=== PATIENT | male | born 1955 | race Caucasian/White ===

== ENCOUNTER 2016-05-07 11:39 | Inpatient (IN) | payer BC ==
[~2016-05-07] VITALS: Ht 175.3 cm; Wt 105.9 kg
[~2016-05-07 11:39] MED LIST: ANORO ELLIPTA1 EACH IH; ASCORBIC ACID500 M1 PO; Ascorbic Acid PO; CEFTIN500 MG PO; DELTASONE20 M1 PO; DUONEB 2.5-0.5 M3 ML AEROSOL; LEVAQUIN750 MG PO; LISINOPRIL10 MG PO; LORTAB 7.5/51 TABLET PO; OFEV100 MG PO; OFEV150 MG PO; ONDANSETRON HCL8 MG PO; PREDNISONE10 MG PO; PROBIOTIC1 EAC1 PO; XANAX0.5 MG PO
[2016-05-07 11:59] LABS: HEMATOCRIT 39.7 % (38.0-50.0); MCH 32.9 PG (29.0-34.0); MCHC 34.3 G/DL (30.0-36.0); MCV 95.9 FL (86-99); MEAN PLAT.VOLUME 9.8 uM^3 (9.0-12.4); PLATELET COUNT 126 K/uL (156-360); RBC DIS.WIDTH-CV 16.3 % (11.8-14.6); RED BLOOD COUNT 4.14 M/uL (4.00-5.50)
[2016-05-07 12:01] LABS: WHITE BLOOD COUNT 3.5 K/uL (4.1-10.2)
[2016-05-07 12:04] LABS: EOSINOPHIL (%) 0.6 % (0-5); IMMATURE GRANULOCYTE (%) 1.7 % (0.0-0.7); IMMATURE GRANULOCYTE COUNT 0.6 K/uL; LYMPHOCYTE COUNT 0.7 K/uL (1.0-2.8); MONOCYTE COUNT 0.1 K/uL (0-0.8); NEUTROPHIL COUNT 2.7 K/uL (1.8-6.4)
[2016-05-07 12:14] LABS: CHLORIDE 106 mEq/L (99-109); POTASSIUM 5.3 mEq/L (3.7-5.4); SODIUM 139 mEq/L (136-147)
[2016-05-07 12:15] LABS: GLUCOSE 86 mg/dL (70-99)
[2016-05-07 12:17] LABS: ANION GAP 16 MEQ/L (2-14)
[2016-05-07 12:19] LABS: GFR ESTIMATE (CALCULATED) > 59 mL/min/
[2016-05-07 12:20] LABS: UREA NITROGEN (BUN) 13 mg/dL (9-23)
[2016-05-07 12:28] LABS: BASE EXCESS -1.7 mEq/L (-3 to +3); BICARBONATE 21.7 mEq/L (22-26); CARBOXY HGB 1.9 % (0-5); METHEMOGLOBIN 1.8 % (0-1.5); PCO2 32 mm Hg (35-45); PO2 178 mm Hg (80-100); pH 7.44 (7.35-7.45)
[2016-05-07 12:29] LABS: COMMENTS - BLOOD GASES A+C+; DEVICE NRBM; FI02 100 %; O2 FLOW 15 L/MIN; SITE LR; TOTAL RESP RATE 26 resp/min
[2016-05-07] MEDS ORDERED: DECADRON4 MG PO (13:23)
[2016-05-07 14:54] LABS: HEMATOLOGY COMMENT 1 SMEAR COMPATIBLE; PLAT.SUFFICIENCY DECREASED; USER ID NPD
[2016-05-07 14:56] LABS: ADD MIUA? NO; BILIRUBIN NEGATIVE; BLOOD NEGATIVE; COLOR YELLOW ((YELLOW)); GLUCOSE (STRIP) NEGATIVE; KETONES NEGATIVE; LEUKOCYTES NEGATIVE; NITRITE NEGATIVE; PROTEIN (STRIP) NEGATIVE; SPECIFIC GRAVITY 1.038 (1.000-1.030); UCUL ADDED? NO; UROBILINOGEN 0.2 MG/DL (0.2-1.0)
[2016-05-07 15:20] LABS: INFLUENZA A VIRAL ANTIGEN NEGATIVE; INFLUENZA B VIRAL ANTIGEN NEGATIVE
[2016-05-07 18:45] VITALS: BP 132/77
[2016-05-07 21:19] VITALS: BP 123/76
[2016-05-08 01:14] VITALS: BP 157/89
[2016-05-08 04:24] VITALS: BP 156/91
[2016-05-08 07:30] LABS: EOSINOPHIL (%) 0 % (0-5); HEMATOCRIT 30.3 % (38.0-50.0); IMMATURE GRANULOCYTE (%) 0.5 % (0.0-0.7); LYMPHOCYTE COUNT 0.2 K/uL (1.0-2.8); MCH 32.3 PG (29.0-34.0); MEAN PLAT.VOLUME 10.9 uM^3 (9.0-12.4); MONOCYTE (%) 2.6 % (3-12); MONOCYTE COUNT 0.1 K/uL (0-0.8); NEUTROPHIL (%) 92.5 % (45-76); PLATELET COUNT 105 K/uL (156-360); RBC DIS.WIDTH-CV 16.3 % (11.8-14.6); RBC DIS.WIDTH-SD 56.4 % (39-53); WHITE BLOOD COUNT 4.3 K/uL (4.1-10.2)
[2016-05-08 07:40] LABS: RED BLOOD COUNT 3.19 M/uL (4.00-5.50)
[2016-05-08 07:49] LABS: ALKALINE PHOSPHATASE 30 IU/L (3-129); ANION GAP 9 MEQ/L (2-14); CHLORIDE 107 MEQ/L (99-109); GFR ESTIMATE (CALCULATED) > 59 mL/min/; POTASSIUM 4.3 MEQ/L (3.7-5.4); SAMPLE HEMOLYSIS CHECK 0; SAMPLE ICTERIC CHECK 0; SAMPLE LIPEMIA CHECK 0; SODIUM 136 MEQ/L (136-147); TOTAL BILIRUBIN 0.6 MG/DL (0.0-1.0); UREA NITROGEN (BUN) 11 mg/dL (9-23)
[2016-05-08 07:57] LABS: GLUCOSE 153 mg/dL (70-99)
[2016-05-08 08:51] VITALS: BP 121/77
[2016-05-08 12:08] VITALS: BP 125/78
[2016-05-08 15:48] VITALS: BP 109/66
[2016-05-08 19:49] VITALS: BP 105/64
[2016-05-09 04:22] VITALS: BP 127/83
[2016-05-09 07:40] VITALS: BP 121/71
[2016-05-09] MEDS ORDERED: PREDNISONE10 MG PO (10:36)
[2016-05-09] MEDS ORDERED: ADVAIR HFA120 INHALA IH (10:36)
[2016-05-09] MEDS ORDERED: CEFDINIR300 MG PO (10:36)
[2016-05-09 11:24] VITALS: BP 131/67
== END 2016-05-09 12:10 | disposition home or self-care (01) | DRG 189 ==
LOC: EME 11:39 → EDOF 14:15 → 4SOUTH 14:15 → EDOF 18:54 → 4SOUTH 05-08 11:05
PROVIDERS: Emergency Medicine; Hospitalist
DX: J96.21 Acute and chronic respiratory failure with hypoxia (principal); J84.112 Idiopathic pulmonary fibrosis; Z99.81 Dependence on supplemental oxygen; J20.9 Acute bronchitis, unspecified; I25.10 Atherosclerotic heart disease of native coronary artery without angina pectoris; I10 Essential (primary) hypertension; G47.30 Sleep apnea, unspecified; D64.9 Anemia, unspecified; Z92.3 Personal history of irradiation; Z87.891 Personal history of nicotine dependence; Z85.118 Personal history of other malignant neoplasm of bronchus and lung
CPT/HCPCS: 36415; 36600; 71010; 71275; 80048; 80053; 81003; 82803; 83605; 85025; 87040; 87502; 93005; 94640; 94640 76; 94799; 99202; 99281; 99285; J0456; J0696; J2543; J2930; J3370; J7030; J7050

== ENCOUNTER 2016-08-26 14:52 | Inpatient (IN) | payer BC ==
[~2016-08-26] VITALS: Ht 175.3 cm; Wt 103.8 kg
[~2016-08-26 14:52] MED LIST changes: +ADVAIR HFA120 INHALA IH; +ATROVENT 00.5 MG/2.5 IH; +CEFDINIR300 MG PO; +DECADRON4 MG PO
[2016-08-26 15:21] LABS: BASOPHIL COUNT 0.1 K/uL (0-0.1); EOSINOPHIL (%) 3.5 % (0-5); EOSINOPHIL COUNT 0.3 K/uL (0-0.3); HEMATOCRIT 47.2 % (38.0-50.0); IMMATURE GRANULOCYTE (%) 0.2 % (0.0-0.7); INSTRUMENT ABS NEUTROPHIL CT 5.8 K/uL; MCH 29.2 PG (29.0-34.0); MCHC 32.8 G/DL (30.0-36.0); MCV 89.1 FL (86-99); MEAN PLAT.VOLUME 10.7 uM^3 (9.0-12.4); MONOCYTE (%) 12.6 % (3-12); NEUTROPHIL (%) 70.5 % (45-76); NEUTROPHIL COUNT 5.8 K/uL (1.8-6.4); PLATELET COUNT 191 K/uL (156-360); RBC DIS.WIDTH-CV 14.6 % (11.8-14.6); RBC DIS.WIDTH-SD 47.6 % (39-53); WHITE BLOOD COUNT 8.2 K/uL (4.1-10.2)
[2016-08-26 15:31] LABS: CHLORIDE 104 mEq/L (99-109); PROTHROMBIN TIME 10.4 (9.2-11.2); PTT 32.7 (25-32); SODIUM 138 mEq/L (136-147)
[2016-08-26 15:31] LABS: BASE EXCESS 1.4 mEq/L (-3 to +3); CARBOXY HGB 2.4 % (0-5)
[2016-08-26 15:32] LABS: MAGNESIUM 1.9 mg/dL (1.3-2.7)
[2016-08-26 15:33] LABS: GLUCOSE 121 mg/dL (70-99)
[2016-08-26 15:34] LABS: ANION GAP 13 MEQ/L (2-14)
[2016-08-26 15:35] LABS: BICARBONATE 26.6 mEq/L (22-26); COMMENTS - BLOOD GASES A+C+; DEVICE NRB; FI02 100 %; O2 FLOW 15 L/MIN; PCO2 43 mm Hg (35-45); PO2 46 mm Hg (80-100); SITE RR
[2016-08-26 15:37] LABS: GFR ESTIMATE (CALCULATED) > 59 mL/min/
[2016-08-26 15:38] LABS: UREA NITROGEN (BUN) 10 mg/dL (9-23)
[2016-08-26 15:47] LABS: TROP-I INTERPRETATION NEGATIVE; TROPONIN-I < 0.01 ng/mL (0.0-0.30)
[2016-08-26 17:17] LABS: BASE EXCESS -0.3 mEq/L (-3 to +3); BICARBONATE 24.1 mEq/L (22-26); CARBOXY HGB 2.3 % (0-5); METHEMOGLOBIN 1.3 % (0-1.5); pH 7.41 (7.35-7.45)
[2016-08-26 17:18] LABS: PCO2 38 mm Hg (35-45); PO2 133 mm Hg (80-100)
[2016-08-26] MEDS ORDERED: ESBRIET267 MG PO (18:22)
[2016-08-26 22:45] LABS: ADD MIUA? NO; BILIRUBIN NEGATIVE; BLOOD NEGATIVE; COLOR YELLOW ((YELLOW)); GLUCOSE (STRIP) NEGATIVE; KETONES NEGATIVE; LEUKOCYTES NEGATIVE; NITRITE NEGATIVE; PROTEIN (STRIP) NEGATIVE; UCUL ADDED? NO; UROBILINOGEN 0.2 MG/DL (0.2-1.0)
[2016-08-26 23:09] LABS: SPECIFIC GRAVITY 1.055 (1.000-1.030)
[2016-08-26 23:10] LABS: INFLUENZA A VIRAL ANTIGEN NEGATIVE; INFLUENZA B VIRAL ANTIGEN NEGATIVE
[2016-08-26] MEDS ORDERED: PROVENTIL HFA6.7 GM IH (23:35)
[2016-08-26 23:40] VITALS: BP 129/96
[2016-08-26 23:44] VITALS: BP 127/84
[2016-08-27] VITALS: BP 122/81
[2016-08-27 00:54] LABS: TROP-I INTERPRETATION NEGATIVE; TROPONIN-I < 0.01 ng/mL (0.0-0.30)
[2016-08-27 00:59] LABS: METH RESISTANT S AUREUS PCR NEGATIVE (NEGATIVE)
[2016-08-27 01:00] LABS: PROBE CHECK PASS; SPECIMEN PROCESSING CONTROL PASS
[2016-08-27 04:00] VITALS: BP 128/75
[2016-08-27] MEDS ORDERED: MELATONIN10 M5 PO (07:11)
[2016-08-27 08:00] VITALS: BP 142/89
[2016-08-27 08:05] LABS: INTERNAL CONTROL VALID? YES
[2016-08-27 09:28] LABS: EOSINOPHIL (%) 0 % (0-5); HEMATOCRIT 40.3 % (38.0-50.0); IMMATURE GRANULOCYTE (%) 0.6 % (0.0-0.7); IMMATURE GRANULOCYTE COUNT 0.1 K/uL; INSTRUMENT ABS NEUTROPHIL CT 9.2 K/uL; LYMPHOCYTE COUNT 0.4 K/uL (1.0-2.8); MCH 29.7 PG (29.0-34.0); MEAN PLAT.VOLUME 10.4 uM^3 (9.0-12.4); MONOCYTE COUNT 0.2 K/uL (0-0.8); NEUTROPHIL (%) 93.1 % (45-76); NEUTROPHIL COUNT 9.2 K/uL (1.8-6.4); PLATELET COUNT 182 K/uL (156-360); RBC DIS.WIDTH-CV 14.5 % (11.8-14.6); RBC DIS.WIDTH-SD 48.1 % (39-53); RED BLOOD COUNT 4.48 M/uL (4.00-5.50); WHITE BLOOD COUNT 9.9 K/uL (4.1-10.2)
[2016-08-27 09:30] LABS: TROP-I INTERPRETATION NEGATIVE; TROPONIN-I < 0.01 ng/mL (0.0-0.30)
[2016-08-27 09:40] LABS: ANION GAP 11 MEQ/L (2-14); CHLORIDE 103 MEQ/L (99-109); GFR ESTIMATE (CALCULATED) > 59 mL/min/; GLUCOSE 147 mg/dL (70-99); POTASSIUM 4.3 MEQ/L (3.7-5.4); SAMPLE HEMOLYSIS CHECK 0; SAMPLE ICTERIC CHECK 0; SAMPLE LIPEMIA CHECK 0; SODIUM 137 MEQ/L (136-147); UREA NITROGEN (BUN) 12 mg/dL (9-23)
[2016-08-27 12:00] VITALS: BP 126/75
[2016-08-27 16:00] VITALS: BP 120/71
[2016-08-27 20:00] VITALS: BP 116/75
[2016-08-28] VITALS: BP 116/79
[2016-08-28 04:00] VITALS: BP 113/67
[2016-08-28 06:15] LABS: EOSINOPHIL (%) 0 % (0-5); HEMATOCRIT 37.8 % (38.0-50.0); IMMATURE GRANULOCYTE (%) 0.5 % (0.0-0.7); IMMATURE GRANULOCYTE COUNT 0.1 K/uL; INSTRUMENT ABS NEUTROPHIL CT 15.3 K/uL; LYMPHOCYTE COUNT 0.5 K/uL (1.0-2.8); MCH 29.3 PG (29.0-34.0); MCHC 32.3 G/DL (30.0-36.0); MCV 90.9 FL (86-99); MEAN PLAT.VOLUME 10.8 uM^3 (9.0-12.4); MONOCYTE (%) 3.4 % (3-12); MONOCYTE COUNT 0.6 K/uL (0-0.8); NEUTROPHIL COUNT 15.3 K/uL (1.8-6.4); PLATELET COUNT 189 K/uL (156-360); RBC DIS.WIDTH-CV 14.5 % (11.8-14.6); RBC DIS.WIDTH-SD 48.6 % (39-53); RED BLOOD COUNT 4.16 M/uL (4.00-5.50)
[2016-08-28 06:17] LABS: WHITE BLOOD COUNT 16.4 K/uL (4.1-10.2)
[2016-08-28 06:49] LABS: ANION GAP 9 MEQ/L (2-14); CHLORIDE 105 MEQ/L (99-109); GFR ESTIMATE (CALCULATED) > 59 mL/min/; GLUCOSE 146 mg/dL (70-99); POTASSIUM 4.5 MEQ/L (3.7-5.4); SAMPLE HEMOLYSIS CHECK 0; SAMPLE ICTERIC CHECK 0; SAMPLE LIPEMIA CHECK 0; SODIUM 139 MEQ/L (136-147); UREA NITROGEN (BUN) 16 mg/dL (9-23)
[2016-08-28 08:00] VITALS: BP 111/70
[2016-08-28 13:00] VITALS: BP 116/72
[2016-08-28 21:00] VITALS: BP 121/81
[2016-08-28 23:00] VITALS: BP 111/70
[2016-08-29] VITALS (7 sets, daily range): BP systolic 110–133; BP diastolic 67–86
[2016-08-29 06:02] LABS: EOSINOPHIL (%) 0 % (0-5); IMMATURE GRANULOCYTE COUNT 0.1 K/uL; INSTRUMENT ABS NEUTROPHIL CT 12.9 K/uL; LYMPHOCYTE COUNT 0.4 K/uL (1.0-2.8); MCH 29.5 PG (29.0-34.0); MCHC 32.2 G/DL (30.0-36.0); MCV 91.6 FL (86-99); MEAN PLAT.VOLUME 10.3 uM^3 (9.0-12.4); MONOCYTE (%) 3.2 % (3-12); MONOCYTE COUNT 0.5 K/uL (0-0.8); NEUTROPHIL (%) 92.8 % (45-76); NEUTROPHIL COUNT 12.9 K/uL (1.8-6.4); PLATELET COUNT 178 K/uL (156-360); RBC DIS.WIDTH-CV 14.6 % (11.8-14.6); RED BLOOD COUNT 4.04 M/uL (4.00-5.50); WHITE BLOOD COUNT 13.9 K/uL (4.1-10.2)
[2016-08-29 06:51] LABS: ANION GAP 10 MEQ/L (2-14); CHLORIDE 101 MEQ/L (99-109); GFR ESTIMATE (CALCULATED) > 59 mL/min/; GLUCOSE 145 mg/dL (70-99); POTASSIUM 4.2 MEQ/L (3.7-5.4); SAMPLE HEMOLYSIS CHECK 0; SAMPLE ICTERIC CHECK 0; SAMPLE LIPEMIA CHECK 0; SODIUM 137 MEQ/L (136-147); UREA NITROGEN (BUN) 16 mg/dL (9-23)
[2016-08-30] VITALS (8 sets, daily range): BP systolic 122–140; BP diastolic 75–83
[2016-08-30 06:42] LABS: EOSINOPHIL (%) 0 % (0-5); HEMATOCRIT 37.3 % (38.0-50.0); IMMATURE GRANULOCYTE (%) 1.1 % (0.0-0.7); IMMATURE GRANULOCYTE COUNT 0.1 K/uL; INSTRUMENT ABS NEUTROPHIL CT 9.9 K/uL; LYMPHOCYTE COUNT 0.4 K/uL (1.0-2.8); MCH 30.2 PG (29.0-34.0); MCV 91.6 FL (86-99); MONOCYTE (%) 3.7 % (3-12); MONOCYTE COUNT 0.4 K/uL (0-0.8); NEUTROPHIL (%) 91.4 % (45-76); NEUTROPHIL COUNT 9.9 K/uL (1.8-6.4); PLATELET COUNT 179 K/uL (156-360); RBC DIS.WIDTH-CV 14.5 % (11.8-14.6); RBC DIS.WIDTH-SD 48.9 % (39-53); RED BLOOD COUNT 4.07 M/uL (4.00-5.50); WHITE BLOOD COUNT 10.8 K/uL (4.1-10.2)
[2016-08-30 07:12] LABS: ANION GAP 9 MEQ/L (2-14); CHLORIDE 101 MEQ/L (99-109); GFR ESTIMATE (CALCULATED) > 59 mL/min/; GLUCOSE 142 mg/dL (70-99); POTASSIUM 4.3 MEQ/L (3.7-5.4); SAMPLE HEMOLYSIS CHECK 0; SAMPLE ICTERIC CHECK 0; SAMPLE LIPEMIA CHECK 0; SODIUM 138 MEQ/L (136-147); UREA NITROGEN (BUN) 15 mg/dL (9-23)
[2016-08-31] VITALS (9 sets, daily range): BP systolic 114–135; BP diastolic 77–90
[2016-08-31 05:59] LABS: EOSINOPHIL (%) 0 % (0-5); HEMATOCRIT 37.8 % (38.0-50.0); IMMATURE GRANULOCYTE (%) 1.2 % (0.0-0.7); IMMATURE GRANULOCYTE COUNT 0.1 K/uL; INSTRUMENT ABS NEUTROPHIL CT 8.5 K/uL; LYMPHOCYTE COUNT 0.4 K/uL (1.0-2.8); MCH 29.8 PG (29.0-34.0); MCHC 33.1 G/DL (30.0-36.0); MCV 90.2 FL (86-99); MEAN PLAT.VOLUME 10.7 uM^3 (9.0-12.4); MONOCYTE (%) 4.5 % (3-12); MONOCYTE COUNT 0.4 K/uL (0-0.8); NEUTROPHIL (%) 89.8 % (45-76); NEUTROPHIL COUNT 8.5 K/uL (1.8-6.4); PLATELET COUNT 174 K/uL (156-360); RBC DIS.WIDTH-CV 14.3 % (11.8-14.6); RBC DIS.WIDTH-SD 47.2 % (39-53); RED BLOOD COUNT 4.19 M/uL (4.00-5.50); WHITE BLOOD COUNT 9.5 K/uL (4.1-10.2)
[2016-08-31 07:44] LABS: ANION GAP 8 MEQ/L (2-14); CHLORIDE 101 MEQ/L (99-109); GFR ESTIMATE (CALCULATED) > 59 mL/min/; GLUCOSE 142 mg/dL (70-99); POTASSIUM 4.3 MEQ/L (3.7-5.4); SAMPLE HEMOLYSIS CHECK 0; SAMPLE ICTERIC CHECK 0; SAMPLE LIPEMIA CHECK 0; SODIUM 137 MEQ/L (136-147); UREA NITROGEN (BUN) 19 mg/dL (9-23)
[2016-09-01] VITALS (12 sets, daily range): BP systolic 121–146; BP diastolic 71–94
[2016-09-02] VITALS (11 sets, daily range): BP systolic 117–149; BP diastolic 76–96
[2016-09-02 06:52] LABS: EOSINOPHIL (%) 0 % (0-5); HEMATOCRIT 39.3 % (38.0-50.0); IMMATURE GRANULOCYTE (%) 1.8 % (0.0-0.7); IMMATURE GRANULOCYTE COUNT 0.2 K/uL; INSTRUMENT ABS NEUTROPHIL CT 9.9 K/uL; LYMPHOCYTE COUNT 0.5 K/uL (1.0-2.8); MCH 30.2 PG (29.0-34.0); MCHC 33.8 G/DL (30.0-36.0); MCV 89.3 FL (86-99); MEAN PLAT.VOLUME 10.8 uM^3 (9.0-12.4); MONOCYTE (%) 4.9 % (3-12); MONOCYTE COUNT 0.6 K/uL (0-0.8); NEUTROPHIL (%) 88.7 % (45-76); NEUTROPHIL COUNT 9.9 K/uL (1.8-6.4); PLATELET COUNT 194 K/uL (156-360); RBC DIS.WIDTH-CV 14.3 % (11.8-14.6); RBC DIS.WIDTH-SD 46.3 % (39-53); WHITE BLOOD COUNT 11.2 K/uL (4.1-10.2)
[2016-09-02 07:16] LABS: ANION GAP 11 MEQ/L (2-14); CHLORIDE 99 MEQ/L (99-109); GFR ESTIMATE (CALCULATED) > 59 mL/min/; GLUCOSE 133 mg/dL (70-99); POTASSIUM 4.4 MEQ/L (3.7-5.4); SAMPLE HEMOLYSIS CHECK 0; SAMPLE ICTERIC CHECK 0; SAMPLE LIPEMIA CHECK 0; SODIUM 137 MEQ/L (136-147); UREA NITROGEN (BUN) 22 mg/dL (9-23)
[2016-09-03] VITALS: BP 132/83
[2016-09-03 04:00] VITALS: BP 110/64
[2016-09-03 08:00] VITALS: BP 127/82
[2016-09-03 11:00] VITALS: BP 121/87
[2016-09-03] MEDS ORDERED: PREDNISONE10 M1 PO (15:02)
== END 2016-09-03 16:41 | disposition home or self-care (01) | DRG 196 ==
LOC: EME 14:52 → EDOF 21:46 → 4WEST 21:46
PROVIDERS: Emergency Medicine; Hospitalist; Student in an Organized Health Care Education/Training Program
DX: J84.112 Idiopathic pulmonary fibrosis (principal); J96.21 Acute and chronic respiratory failure with hypoxia; J44.1 Chronic obstructive pulmonary disease with (acute) exacerbation; Z99.81 Dependence on supplemental oxygen; E87.2 Acidosis; I10 Essential (primary) hypertension; G47.33 Obstructive sleep apnea (adult) (pediatric); Z85.118 Personal history of other malignant neoplasm of bronchus and lung; Z90.2 Acquired absence of lung [part of]; Z92.21 Personal history of antineoplastic chemotherapy; Z92.3 Personal history of irradiation; Z87.891 Personal history of nicotine dependence
CPT/HCPCS: 36600; 71010; 71020; 71275; 80048; 80202; 81003; 82803; 83605; 83735; 84145 90; 84484; 85025; 85610; 85730; 87040; 87070; 87205; 87449; 87502; 87641; 93005; 94010; 94640; 94640 76; 94760; 94799; 97530 GO; 97530 GP; 99202; 99281; 99285; J0456; J0692; J1650; J1956; J2270; J2405; J2930; J3370; J7050; J7120

== ENCOUNTER 2016-09-13 17:15 | Inpatient (IN) | payer BC ==
[~2016-09-13] VITALS: Ht 175.3 cm; Wt 95.5 kg
[~2016-09-13 17:15] MED LIST changes: +ESBRIET267 MG PO; +MELATONIN10 M5 PO; +PREDNISONE10 M1 PO; +PROVENTIL HFA6.7 GM IH
[2016-09-13 18:34] LABS: EOSINOPHIL (%) 0.1 % (0-5); HEMATOCRIT 43.2 % (38.0-50.0); IMMATURE GRANULOCYTE COUNT 0.2 K/uL; INSTRUMENT ABS NEUTROPHIL CT 19.5 K/uL; LYMPHOCYTE COUNT 0.8 K/uL (1.0-2.8); MCH 29.2 PG (29.0-34.0); MCHC 33.1 G/DL (30.0-36.0); MCV 88.3 FL (86-99); MEAN PLAT.VOLUME 10.7 uM^3 (9.0-12.4); MONOCYTE (%) 5.8 % (3-12); MONOCYTE COUNT 1.3 K/uL (0-0.8); NEUTROPHIL (%) 89.2 % (45-76); NEUTROPHIL COUNT 19.5 K/uL (1.8-6.4); PLATELET COUNT 157 K/uL (156-360); RBC DIS.WIDTH-CV 14.6 % (11.8-14.6); RBC DIS.WIDTH-SD 47.7 % (39-53); RED BLOOD COUNT 4.89 M/uL (4.00-5.50); WHITE BLOOD COUNT 21.9 K/uL (4.1-10.2)
[2016-09-13 18:40] LABS: CHLORIDE 98 mEq/L (99-109); INTER. NORMALIZED RATIO 1.1; POTASSIUM 4.7 mEq/L (3.7-5.4); PROTHROMBIN TIME 11.5 (9.2-11.2); PTT 33.3 (25-32); SODIUM 134 mEq/L (136-147)
[2016-09-13 18:42] LABS: GLUCOSE 166 mg/dL (70-99)
[2016-09-13 18:43] LABS: ANION GAP 12 MEQ/L (2-14)
[2016-09-13 18:44] LABS: TOTAL BILIRUBIN 0.6 mg/dL (0.0-1.0)
[2016-09-13 18:46] LABS: ALKALINE PHOSPHATASE 61 IU/L (3-129); GFR ESTIMATE (CALCULATED) > 59 mL/min/
[2016-09-13 18:47] LABS: UREA NITROGEN (BUN) 21 mg/dL (9-23)
[2016-09-13] MEDS ORDERED: ALBUTEROL2.5 MG/3 M IH (19:37)
[2016-09-13] MEDS ORDERED: PREDNISONE20 MG PO (19:39)
[2016-09-13] MEDS ORDERED: LEVAQUIN750 MG PO (19:40)
[2016-09-14 00:23] VITALS: BP 124/90
[2016-09-14 04:30] VITALS: BP 114/74
[2016-09-14 05:12] LABS: ADD MIUA? YES; BILIRUBIN NEGATIVE; BLOOD LARGE; COLOR YELLOW ((YELLOW)); GLUCOSE (STRIP) NEGATIVE; KETONES 5; LEUKOCYTES NEGATIVE; NITRITE NEGATIVE; PROTEIN (STRIP) NEGATIVE; UROBILINOGEN 0.2 MG/DL (0.2-1.0)
[2016-09-14 05:29] LABS: SPECIFIC GRAVITY 1.085 (1.000-1.030)
[2016-09-14 05:34] LABS: BACTERIA 1+ /HPF; EPITHELIAL CELLS NONE SEEN /HPF; MUCUS 2+ /LPF; UCUL ADDED? NO; WHITE BLOOD CELLS 0-5 /HPF (0-5)
[2016-09-14 05:35] LABS: CASTS PRESENT /LPF
[2016-09-14 05:57] LABS: C DIFF TOXIN NEGATIVE (NEGATIVE)
[2016-09-14 06:02] LABS: PROBE CHECK PASS; SPECIMEN PROCESSING CONTROL PASS
[2016-09-14 06:13] LABS: ANION GAP 11 MEQ/L (2-14); CHLORIDE 102 MEQ/L (99-109); GFR ESTIMATE (CALCULATED) > 59 mL/min/; POTASSIUM 3.9 MEQ/L (3.7-5.4); SAMPLE HEMOLYSIS CHECK 0; SAMPLE ICTERIC CHECK 0; SAMPLE LIPEMIA CHECK 0; SODIUM 134 MEQ/L (136-147); UREA NITROGEN (BUN) 24 mg/dL (9-23)
[2016-09-14 06:26] LABS: GLUCOSE 115 mg/dL (70-99)
[2016-09-14 07:47] VITALS: BP 121/70
[2016-09-14 12:23] VITALS: BP 122/80
[2016-09-14 15:49] LABS: EOSINOPHIL (%) 0.5 % (0-5); EOSINOPHIL COUNT 0.1 K/uL (0-0.3); HEMATOCRIT 37.4 % (38.0-50.0); IMMATURE GRANULOCYTE (%) 0.7 % (0.0-0.7); IMMATURE GRANULOCYTE COUNT 0.1 K/uL; INSTRUMENT ABS NEUTROPHIL CT 11.5 K/uL; LYMPHOCYTE COUNT 1.9 K/uL (1.0-2.8); MCH 29.3 PG (29.0-34.0); MCHC 32.1 G/DL (30.0-36.0); MCV 91.2 FL (86-99); MEAN PLAT.VOLUME 11.4 uM^3 (9.0-12.4); MONOCYTE (%) 3.4 % (3-12); MONOCYTE COUNT 0.5 K/uL (0-0.8); NEUTROPHIL COUNT 11.5 K/uL (1.8-6.4); PLATELET COUNT 141 K/uL (156-360); RBC DIS.WIDTH-CV 15.2 % (11.8-14.6)
[2016-09-14 16:53] VITALS: BP 127/83
[2016-09-14 19:54] VITALS: BP 114/62
[2016-09-15] VITALS (7 sets, daily range): BP systolic 111–129; BP diastolic 67–76
[2016-09-15 01:27] LABS: EOSINOPHIL (%) 1.1 % (0-5); EOSINOPHIL COUNT 0.1 K/uL (0-0.3); HEMATOCRIT 28.2 % (38.0-50.0); IMMATURE GRANULOCYTE COUNT 0.1 K/uL; INSTRUMENT ABS NEUTROPHIL CT 6.8 K/uL; LYMPHOCYTE COUNT 0.8 K/uL (1.0-2.8); MCH 29.1 PG (29.0-34.0); MCV 88.1 FL (86-99); MEAN PLAT.VOLUME 10.2 uM^3 (9.0-12.4); MONOCYTE (%) 6.7 % (3-12); MONOCYTE COUNT 0.6 K/uL (0-0.8); NEUTROPHIL (%) 81.4 % (45-76); NEUTROPHIL COUNT 6.8 K/uL (1.8-6.4); PLATELET COUNT 106 K/uL (156-360); RBC DIS.WIDTH-CV 14.9 % (11.8-14.6); RBC DIS.WIDTH-SD 48.6 % (39-53); WHITE BLOOD COUNT 8.4 K/uL (4.1-10.2)
[2016-09-15 07:03] LABS: EOSINOPHIL (%) 1.2 % (0-5); EOSINOPHIL COUNT 0.1 K/uL (0-0.3); HEMATOCRIT 30.8 % (38.0-50.0); IMMATURE GRANULOCYTE (%) 0.5 % (0.0-0.7); INSTRUMENT ABS NEUTROPHIL CT 7.3 K/uL; LYMPHOCYTE COUNT 0.8 K/uL (1.0-2.8); MCHC 33.4 G/DL (30.0-36.0); MCV 89.8 FL (86-99); MEAN PLAT.VOLUME 10.4 uM^3 (9.0-12.4); MONOCYTE (%) 7.2 % (3-12); MONOCYTE COUNT 0.6 K/uL (0-0.8); NEUTROPHIL (%) 82.5 % (45-76); NEUTROPHIL COUNT 7.3 K/uL (1.8-6.4); PLATELET COUNT 119 K/uL (156-360); RBC DIS.WIDTH-CV 15.2 % (11.8-14.6); RBC DIS.WIDTH-SD 49.9 % (39-53); RED BLOOD COUNT 3.43 M/uL (4.00-5.50); WHITE BLOOD COUNT 8.9 K/uL (4.1-10.2)
[2016-09-15 07:30] LABS: ANION GAP 8 MEQ/L (2-14); CHLORIDE 103 MEQ/L (99-109); GFR ESTIMATE (CALCULATED) > 59 mL/min/; GLUCOSE 93 mg/dL (70-99); POTASSIUM 3.8 MEQ/L (3.7-5.4); SAMPLE HEMOLYSIS CHECK 0; SAMPLE ICTERIC CHECK 0; SAMPLE LIPEMIA CHECK 0; SODIUM 138 MEQ/L (136-147); UREA NITROGEN (BUN) 11 mg/dL (9-23)
[2016-09-16 04:13] VITALS: BP 122/79
[2016-09-16 06:37] LABS: HEMATOCRIT 26.9 % (38.0-50.0); MCH 30.1 PG (29.0-34.0); MCHC 33.8 G/DL (30.0-36.0); MCV 89.1 FL (86-99); MEAN PLAT.VOLUME 10.2 uM^3 (9.0-12.4); PLATELET COUNT 111 K/uL (156-360); RBC DIS.WIDTH-CV 15.3 % (11.8-14.6); RBC DIS.WIDTH-SD 49.5 % (39-53); RED BLOOD COUNT 3.02 M/uL (4.00-5.50); WHITE BLOOD COUNT 6.1 K/uL (4.1-10.2)
[2016-09-16 08:07] VITALS: BP 110/67
[2016-09-16 12:23] VITALS: BP 104/71
[2016-09-16 12:43] LABS: HEMATOCRIT 31.5 % (38.0-50.0); MCV 89.7 FL (86-99)
[2016-09-16] MEDS ORDERED: CIPROFLOXACIN500 M1 PO (13:47)
[2016-09-16] MEDS ORDERED: METRONIDAZOLE500 MG PO (13:47)
[2016-09-16 17:34] VITALS: BP 108/74
[2016-09-16 19:42] VITALS: BP 121/74
[2016-09-16 23:41] VITALS: BP 119/75
[2016-09-17 03:32] VITALS: BP 121/69
[2016-09-17 06:10] LABS: HEMATOCRIT 28.5 % (38.0-50.0); MCV 88.2 FL (86-99)
[2016-09-17 08:14] VITALS: BP 116/79
[2016-09-17 11:49] VITALS: BP 114/72
[2016-09-17 16:31] VITALS: BP 124/73
== END 2016-09-17 18:13 | disposition home or self-care (01) | DRG 378 ==
LOC: EME 17:15 → EDOF 20:32 → 5SOUTH 20:32 → 4EAST 23:04 → 5SOUTH 09-14 16:16
PROVIDERS: Emergency Medicine; Hospitalist; Internal Medicine; Internal Medicine Gastroenterology; Physician Assistant Medical
DX: K62.5 Hemorrhage of anus and rectum (principal); K44.9 Diaphragmatic hernia without obstruction or gangrene; J96.10 Chronic respiratory failure, unspecified whether with hypoxia or hypercapnia; K57.31 Diverticulosis of large intestine without perforation or abscess with bleeding; J44.9 Chronic obstructive pulmonary disease, unspecified; J84.112 Idiopathic pulmonary fibrosis; R00.0 Tachycardia, unspecified; I95.9 Hypotension, unspecified; K59.00 Constipation, unspecified; K76.89 Other specified diseases of liver; K55.9 Vascular disorder of intestine, unspecified; I10 Essential (primary) hypertension; E66.01 Morbid (severe) obesity due to excess calories; Y95 Nosocomial condition; Z92.3 Personal history of irradiation; Z85.118 Personal history of other malignant neoplasm of bronchus and lung; Z87.891 Personal history of nicotine dependence; Z68.31 Body mass index [BMI] 31.0-31.9, adult; Z92.21 Personal history of antineoplastic chemotherapy; Z99.81 Dependence on supplemental oxygen; Z93.3 Colostomy status; K40.90 Unilateral inguinal hernia, without obstruction or gangrene, not specified as recurrent; M43.00 Spondylolysis, site unspecified
CPT/HCPCS: 71010; 74177; 80048; 80053; 81003; 83605; 85014; 85018; 85025; 85025 91; 85027; 85610; 85730; 86900; 86901; 87045; 87046; 87177; 87186; 87329; 87493; 87506; 94640; 94640 76; 94660; 94760; 94799; 99202; 99281; 99285; C9113; J0744; J1956; J2270; J2405; J7030; J7512; S0030

== ENCOUNTER 2016-10-04 19:04 | Inpatient (IN) | payer BC ==
[~2016-10-04] VITALS: Ht 175.3 cm; Wt 89.0 kg
[~2016-10-04 19:04] MED LIST changes: +ALBUTEROL2.5 MG/3 M IH; +CIPROFLOXACIN500 M1 PO; +METRONIDAZOLE500 MG PO; +PREDNISONE20 MG PO
[2016-10-04 19:56] LABS: HEMATOCRIT 41.6 % (38.0-50.0); MCH 29.4 PG (29.0-34.0); MCHC 32.5 G/DL (30.0-36.0); MCV 90.6 FL (86-99); MEAN PLAT.VOLUME 9.7 uM^3 (9.0-12.4); RBC DIS.WIDTH-CV 17.2 % (11.8-14.6); RBC DIS.WIDTH-SD 57.1 % (39-53); RED BLOOD COUNT 4.59 M/uL (4.00-5.50); WHITE BLOOD COUNT 5.5 K/uL (4.1-10.2)
[2016-10-04 20:01] LABS: CHLORIDE 104 mEq/L (99-109); POTASSIUM 4.5 mEq/L (3.7-5.4); SODIUM 140 mEq/L (136-147)
[2016-10-04 20:02] LABS: GLUCOSE 170 mg/dL (70-99)
[2016-10-04 20:03] LABS: PROTHROMBIN TIME 10.6 (9.2-11.2); PTT 26.5 (25-32)
[2016-10-04 20:04] LABS: ANION GAP 11 MEQ/L (2-14)
[2016-10-04 20:06] LABS: GFR ESTIMATE (CALCULATED) > 59 mL/min/
[2016-10-04 20:07] LABS: UREA NITROGEN (BUN) 10 mg/dL (9-23)
[2016-10-04 20:13] LABS: TROP-I INTERPRETATION NEGATIVE; TROPONIN-I 0.01 ng/mL (0.0-0.30)
[2016-10-04 20:47] LABS: PLATELET COUNT 164 K/uL (156-360)
[2016-10-04 23:54] VITALS: BP 110/69
[2016-10-05] VITALS (7 sets, daily range): BP systolic 107–126; BP diastolic 62–79
[2016-10-05] MEDS ORDERED: MELATONIN5 M4 PO (03:26)
[2016-10-05 06:04] LABS: HEMATOCRIT 36.4 % (38.0-50.0); MCH 29.2 PG (29.0-34.0); MCHC 32.7 G/DL (30.0-36.0); MCV 89.2 FL (86-99); MEAN PLAT.VOLUME 10.2 uM^3 (9.0-12.4); PLATELET COUNT 174 K/uL (156-360); RBC DIS.WIDTH-CV 17.2 % (11.8-14.6); RBC DIS.WIDTH-SD 56.5 % (39-53); RED BLOOD COUNT 4.08 M/uL (4.00-5.50); WHITE BLOOD COUNT 7.1 K/uL (4.1-10.2)
[2016-10-05 06:26] LABS: TROP-I INTERPRETATION NEGATIVE; TROPONIN-I 0.03 ng/mL (0.0-0.30)
[2016-10-05 06:28] LABS: ANION GAP 9 MEQ/L (2-14); CHLORIDE 105 MEQ/L (99-109); GFR ESTIMATE (CALCULATED) > 59 mL/min/; GLUCOSE 180 mg/dL (70-99); POTASSIUM 4.7 MEQ/L (3.7-5.4); SAMPLE HEMOLYSIS CHECK 0; SAMPLE ICTERIC CHECK 0; SAMPLE LIPEMIA CHECK 0; SODIUM 137 MEQ/L (136-147); UREA NITROGEN (BUN) 10 mg/dL (9-23)
[2016-10-05 11:14] LABS: POINT-OF-CARE METER ID UU14174216
[2016-10-05 14:51] LABS: METH RESISTANT S AUREUS PCR NEGATIVE (NEGATIVE)
[2016-10-05 14:58] LABS: PROBE CHECK PASS; SPECIMEN PROCESSING CONTROL PASS
[2016-10-05 17:44] LABS: POINT-OF-CARE METER ID UU14174216
[2016-10-06 03:30] VITALS: BP 115/72
[2016-10-06 06:03] LABS: POINT-OF-CARE METER ID UU13113781
[2016-10-06 06:27] LABS: HEMATOCRIT 32.8 % (38.0-50.0); MCH 29.6 PG (29.0-34.0); MCHC 32.9 G/DL (30.0-36.0); MCV 89.9 FL (86-99); MEAN PLAT.VOLUME 10.7 uM^3 (9.0-12.4); PLATELET COUNT 162 K/uL (156-360); RBC DIS.WIDTH-CV 17.1 % (11.8-14.6); RBC DIS.WIDTH-SD 56.4 % (39-53); RED BLOOD COUNT 3.65 M/uL (4.00-5.50); WHITE BLOOD COUNT 9.7 K/uL (4.1-10.2)
[2016-10-06 06:50] LABS: ANION GAP 8 MEQ/L (2-14); CHLORIDE 105 MEQ/L (99-109); GFR ESTIMATE (CALCULATED) > 59 mL/min/; GLUCOSE 159 mg/dL (70-99); POTASSIUM 4.6 MEQ/L (3.7-5.4); SAMPLE HEMOLYSIS CHECK 0; SAMPLE ICTERIC CHECK 0; SAMPLE LIPEMIA CHECK 0; SODIUM 139 MEQ/L (136-147); UREA NITROGEN (BUN) 10 mg/dL (9-23)
[2016-10-06 07:30] VITALS: BP 111/70
[2016-10-06 12:06] VITALS: BP 119/72
[2016-10-06 15:56] VITALS: BP 148/74
[2016-10-06 19:00] VITALS: BP 112/65
[2016-10-06 22:30] VITALS: BP 122/78
[2016-10-07 03:00] VITALS: BP 121/73
[2016-10-07 07:32] VITALS: BP 111/71
[2016-10-07 12:02] VITALS: BP 123/72
[2016-10-07 15:53] VITALS: BP 118/73
[2016-10-07 19:00] VITALS: BP 128/78
[2016-10-07 22:30] VITALS: BP 120/72
[2016-10-08 03:00] VITALS: BP 127/76
[2016-10-08 07:17] VITALS: BP 113/74
[2016-10-08 11:47] VITALS: BP 109/73
[2016-10-08 15:15] VITALS: BP 128/76
[2016-10-08 19:00] VITALS: BP 130/69
[2016-10-08 23:00] VITALS: BP 128/79
[2016-10-09] VITALS (7 sets, daily range): BP systolic 114–141; BP diastolic 68–85
[2016-10-10 00:55] VITALS: BP 114/74
[2016-10-10 06:09] VITALS: BP 130/87
[2016-10-10 07:44] VITALS: BP 115/78
[2016-10-10] MEDS ORDERED: PREDNISONE20 MG PO (12:14)
== END 2016-10-10 13:30 | disposition home health service (06) | DRG 189 ==
LOC: EME 19:04 → 4EAST 22:40 → EDOF 22:40 → 4EAST 23:43 → 5EAST 10-09 03:24
PROVIDERS: Emergency Medicine; Hospitalist; Internal Medicine
PROC: 5A09357 Assistance with Respiratory Ventilation, Less than 24 Consecutive Hours, Continuous Positive Airway Pressure (ICD-10-PCS; principal; 2016-10-06)
DX: J96.21 Acute and chronic respiratory failure with hypoxia (principal); J44.0 Chronic obstructive pulmonary disease with (acute) lower respiratory infection; J84.9 Interstitial pulmonary disease, unspecified; J84.112 Idiopathic pulmonary fibrosis; J44.1 Chronic obstructive pulmonary disease with (acute) exacerbation; R00.0 Tachycardia, unspecified; I10 Essential (primary) hypertension; E66.9 Obesity, unspecified; Z99.81 Dependence on supplemental oxygen; Z68.31 Body mass index [BMI] 31.0-31.9, adult; Z87.891 Personal history of nicotine dependence; Z85.118 Personal history of other malignant neoplasm of bronchus and lung; Z90.2 Acquired absence of lung [part of]
CPT/HCPCS: 71010; 71275; 80048; 82948; 84145 90; 84484; 85027; 85610; 85730; 87040; 87070; 87205; 87641; 93005; 93306; 94640; 94640 76; 94660; 94760; 94799; 99202; 99281; 99285; J0456; J0692; J0696; J1644; J2920; J3370; J7030; J7050; J7512; J7644